=== PATIENT | female | born 1960 | race Caucasian/White ===

== ENCOUNTER 2017-03-14 20:32 | Emergency (ER) | payer OTHER ==
[~2017-03-14] VITALS: Ht 170.2 cm; Wt 90.9 kg
[~2017-03-14 20:32] MED LIST: ACETAMINOPHEN W1 TA6 PO; ASPIR-LOW81 MG PO; ASPIRIN 32325 MG/TAB PO; ASPIRIN E.C. 8181 MG PO; CELEBREX50 MG PO; CENTRUM SILVER1 TA1 PO; FISH OIL CONC1000 MG PO; FLONASE NASAL S16 GM NS; FORTAMET1000 MG PO; IBUPROFEN 200200 MG PO; IMITREX100 MG PO; LORATADINE10 MG PO; MACROBID 1100 MG/CAP PO; MVI; NEXIUM 40MG40 MG PO; PRILOSEC10 MG PO; SYNTHROID0.112 MG/T PO; VALIUM 5MG T5 MG/TAB PO; VITAMIN C BUFF500 MG PO; VITAMIN C500 MG PO; VYTORIN 10 MG-41 TAB PO; ZOCOR; ZOCOR5 MG PO
[2017-03-14 20:34] VITALS: TEMP 99.7
[2017-03-14] MEDS ORDERED: JANUMXR500-50 (20:41)
[2017-03-14 21:23] LABS: CALCIUM 8.8 mg/dL (8.4-10.2); CREATININE, serum 0.81 mg/dL (0.52-1.25); POTASSIUM 3.7 mmol/L (3.4-5.0)
[2017-03-14 22:32] VITALS: BP 123/73; PULSE 98
[2017-03-14] MEDS ORDERED: ZOFRAN8 MG PO (22:49)
== END 2017-03-14 22:59 | disposition home or self-care (01) ==
LOC: COL.ER 20:32
PROVIDERS: Emergency Medicine
DX: R11.2 Nausea with vomiting, unspecified (principal); R19.7 Diarrhea, unspecified; E11.9 Type 2 diabetes mellitus without complications; F41.9 Anxiety disorder, unspecified; F32.9 Major depressive disorder, single episode, unspecified; Z79.84 Long term (current) use of oral hypoglycemic drugs
CPT/HCPCS: J1885; J2405; J7030

== ENCOUNTER → 2017-05-25 | Outpatient (CLI) | payer OTHER ==
[~2017-05-25] MED LIST changes: +B-12 100 MCG PO; +FLONASEALLERGY NS; +JANUMXR500-50; +MAXALT10 MG; +PLAQUENIL 200M200 MG PO; +SYNTHROID0.125 MG/T PO; +ZOFRAN8 MG PO; +ZYRTEC 10MG10 MG PO
== END ==
LOC: MHCPAIN 08:19
DX: G89.29 Other chronic pain (principal); M54.12 Radiculopathy, cervical region; M47.812 Spondylosis without myelopathy or radiculopathy, cervical region; R51 Headache
CPT/HCPCS: G0463

== ENCOUNTER 2017-06-02 08:07 | Emergency (ER) | payer OTHER ==
[~2017-06-02] VITALS: Ht 170.2 cm; Wt 90.9 kg
[~2017-06-02 08:07] MED LIST changes: -B-12 100 MCG PO; -FLONASEALLERGY NS; -MAXALT10 MG; -PLAQUENIL 200M200 MG PO; -SYNTHROID0.125 MG/T PO; -ZYRTEC 10MG10 MG PO
[2017-06-02 08:10] VITALS: TEMP 97.7
[2017-06-02] MEDS ORDERED: ASPIRIN E.C. 8181 MG PO (08:30)
[2017-06-02] MEDS ORDERED: MAXALT10 MG (08:54)
[2017-06-02] MEDS ORDERED: SYNTHROID0.125 MG/T PO (08:54)
[2017-06-02] MEDS ORDERED: B-12 100 MCG PO (08:55)
[2017-06-02] MEDS ORDERED: FLONASEALLERGY NS (08:55)
[2017-06-02 09:01] LABS: BASO % 0.9 % (0.0-2.0); EOS # 0.2 (0.0-0.7); EOS % 3.5 % (0-4.0); GRAN # 2.5 (1.4-6.5); GRAN % 54.3 % (42.2-75.2); HEMATOCRIT 37.4 % (37.0-47.0); HEMOGLOBIN 12.5 g/dl (12.5-16.0); LYMPH # 1.5 (1.2-3.4); LYMPH % 32.7 % (20.0-51.0); MEAN CELL VOLUME 88 fl (80.0-100.0); MEAN CORPUSCULAR HEMOGLOBIN 30 pg (27.0-31.0); MEAN CORPUSCULAR HGB CONC 33 g/dl (33.0-37.0); MEAN PLATELET VOLUME 9.5 fl (7.4-10.4); MONO # 0.4 (0.1-0.6); MONO % 8.2 % (1.7-9.3); PLATELET COUNT 255 K/mm3 (130-400); RED BLOOD COUNT 4.24 M/mm3 (4.10-5.30); REDCELL DISTRIBUTION WIDTH-CV 13.1 % (11.5-14.5); WHITE BLOOD COUNT 4.5 K/mm3 (4.8-10.8)
[2017-06-02 09:12] LABS: ADJUSTED CALCIUM 9.4 mg/dL (8.4-10.2); ALANINE AMINOTRANSFERASE 52 U/L (9-52); ALBUMIN 4.5 gm/dL (3.5-5.0); ALKALINE PHOSPHATASE 81 U/L (50-136); ANION GAP 12 mmol/L (7-16); BILIRUBIN,TOTAL 0.5 mg/dL (0.0-1.0); BLOOD UREA NITROGEN 19 mg/dL (7-17); CALCIUM 9.8 mg/dL (8.4-10.2); CARBON DIOXIDE 23 mmol/L (22-30); CHLORIDE 104 mmol/L (98-107); CREATININE, serum 0.94 mg/dL (0.52-1.25); GLUCOSE 107 mg/dL (74-106); LIPASE 296 U/L (23-300); POTASSIUM 4.6 mmol/L (3.4-5.0); SODIUM 140 mmol/L (137-145); TOTAL PROTEIN 7.5 gm/dL (6.4-8.2)
[2017-06-02 09:24] LABS: TROPONIN-I < 0.012 ng/mL (0.000-0.034)
[2017-06-02] MEDS ORDERED: ZYRTEC 10MG10 MG PO (09:45)
[2017-06-02] MEDS ORDERED: PLAQUENIL 200M200 MG PO (09:47)
[2017-06-02 10:04] VITALS: BP 118/78; PULSE 80
== END 2017-06-02 10:05 | disposition home or self-care (01) ==
LOC: COL.ER 08:07
PROVIDERS: Physician Assistant
DX: M62.838 Other muscle spasm (principal); R07.9 Chest pain, unspecified; M54.2 Cervicalgia; E11.9 Type 2 diabetes mellitus without complications; E03.9 Hypothyroidism, unspecified; Z79.82 Long term (current) use of aspirin; Z79.84 Long term (current) use of oral hypoglycemic drugs

== ENCOUNTER → 2017-06-04 | Outpatient (CLI) | payer OTHER ==
[~2017-06-04] MED LIST changes: +B-12 100 MCG PO; +FLONASEALLERGY NS; +MAXALT10 MG; +PLAQUENIL 200M200 MG PO; +SYNTHROID0.125 MG/T PO; +ZYRTEC 10MG10 MG PO
== END ==
LOC: MHCPAIN 07:31
DX: M50.323 Other cervical disc degeneration at C6-C7 level (principal)
CPT/HCPCS: J1100; Q9967

== ENCOUNTER → 2018-04-14 | Outpatient (CLI) | payer OTHER | LOC: MHCPAIN 12:28 | DX: G89.29 Other chronic pain (principal); M50.90 Cervical disc disorder, unspecified, unspecified cervical region; M54.12 Radiculopathy, cervical region; M54.81 Occipital neuralgia; R51 Headache | CPT/HCPCS: G0463 ==

== ENCOUNTER → 2018-05-06 | Outpatient (CLI) | payer OTHER | LOC: MHCPAIN 08:16 | DX: M50.322 Other cervical disc degeneration at C5-C6 level (principal) | CPT/HCPCS: J1040; J1100; J2250; J3010; Q9967 ==

== ENCOUNTER → 2018-06-10 | Outpatient (CLI) | payer OTHER | LOC: MHCPAIN 07:55 | DX: G89.29 Other chronic pain (principal); M50.90 Cervical disc disorder, unspecified, unspecified cervical region; M54.12 Radiculopathy, cervical region | CPT/HCPCS: J1100; J2250; J3010; Q9967 ==

== ENCOUNTER → 2018-09-21 | Outpatient (CLI) | payer OTHER | LOC: MHCPAIN 13:04 | DX: G89.29 Other chronic pain (principal); M50.90 Cervical disc disorder, unspecified, unspecified cervical region; M54.12 Radiculopathy, cervical region | CPT/HCPCS: G0463 ==

== ENCOUNTER → 2018-09-23 | Outpatient (CLI) | payer OTHER | LOC: MHCPAIN 10:58 | DX: M54.12 Radiculopathy, cervical region (principal); M50.90 Cervical disc disorder, unspecified, unspecified cervical region | CPT/HCPCS: J1100; J2250; J3010; Q9967 ==

== ENCOUNTER → 2018-10-26 | Outpatient (CLI) | payer OTHER | LOC: COL.RAD 06:59 | DX: M96.1 Postlaminectomy syndrome, not elsewhere classified (principal) | CPT/HCPCS: A9585 ==

== ENCOUNTER 2019-01-24 15:42 | Emergency (ER) | payer OTHER ==
[~2019-01-24] VITALS: Ht 170.2 cm; Wt 90.9 kg
[2019-01-24 15:50] VITALS: TEMP 97.9
[2019-01-24 16:24] LABS: BASO # 0.1 (0.0-0.2); BASO % 0.8 % (0.0-2.0); EOS # 0.2 (0.0-0.7); GRAN # 3.1 (1.4-6.5); GRAN % 51.7 % (42.2-75.2); HEMATOCRIT 37.2 % (37.0-47.0); HEMOGLOBIN 12.6 g/dl (12.5-16.0); LYMPH % 33.7 % (20.0-51.0); MEAN CELL VOLUME 93 fl (80.0-100.0); MEAN CORPUSCULAR HEMOGLOBIN 31 pg (27.0-31.0); MEAN CORPUSCULAR HGB CONC 34 g/dl (33.0-37.0); MEAN PLATELET VOLUME 9.7 fl (7.4-10.4); MONO # 0.6 (0.1-0.6); MONO % 10.5 % (1.7-9.3); PLATELET COUNT 216 K/mm3 (130-400); RED BLOOD COUNT 4.01 M/mm3 (4.10-5.30); REDCELL DISTRIBUTION WIDTH-CV 12.6 % (11.5-14.5)
[2019-01-24 16:32] LABS: ALANINE AMINOTRANSFERASE 37 U/L (9-52); ALBUMIN 4.5 gm/dL (3.5-5.0); ALKALINE PHOSPHATASE 68 U/L (50-136); ANION GAP 10 mmol/L (7-16); AST,SGOT 31 U/L (15-37); BILIRUBIN,TOTAL 0.3 mg/dL (0.0-1.0); BLOOD UREA NITROGEN 18 mg/dL (7-17); CALCIUM 9.6 mg/dL (8.4-10.2); CARBON DIOXIDE 23 mmol/L (22-30); CHLORIDE 105 mmol/L (98-107); CREATININE, serum 1.09 mg/dL (0.52-1.25); GLUCOSE 119 mg/dL (74-106); POTASSIUM 4.8 mmol/L (3.4-5.0); SODIUM 139 mmol/L (137-145); TOTAL PROTEIN 7.2 gm/dL (6.4-8.2)
[2019-01-24 16:45] LABS: TROPONIN-I < 0.012 ng/mL (0.000-0.035)
[2019-01-24 20:26] VITALS: BP 110/68; PULSE 78
== END 2019-01-24 20:26 | disposition home or self-care (01) ==
LOC: COL.ER 15:42
PROVIDERS: Emergency Medicine
DX: R07.89 Other chest pain (principal); E03.9 Hypothyroidism, unspecified; E11.9 Type 2 diabetes mellitus without complications; K21.9 Gastro-esophageal reflux disease without esophagitis; G43.909 Migraine, unspecified, not intractable, without status migrainosus; Z79.82 Long term (current) use of aspirin; Z79.51 Long term (current) use of inhaled steroids

== ENCOUNTER 2019-11-13 03:09 | Emergency (ER) | payer OTHER ==
[~2019-11-13] VITALS: Ht 170.2 cm; Wt 88.6 kg
[2019-11-13 03:12] VITALS: TEMP 97.2
[2019-11-13] MEDS ORDERED: CELEBREX 200MG200 MG PO (03:24)
[2019-11-13] MEDS ORDERED: NATURAL MAGNES200 MG PO (03:25)
[2019-11-13 05:01] LABS: BASO % 0.5 % (0.0-2.0); EOS # 0.2 (0.0-0.7); GRAN # 2.1 (1.4-6.5); GRAN % 55.3 % (42.2-75.2); HEMOGLOBIN 12.4 g/dl (12.5-16.0); LYMPH % 26.2 % (20.0-51.0); MEAN CELL VOLUME 91 fl (80.0-100.0); MEAN CORPUSCULAR HEMOGLOBIN 31 pg (27.0-31.0); MEAN CORPUSCULAR HGB CONC 34 g/dl (33.0-37.0); MEAN PLATELET VOLUME 9.7 fl (7.4-10.4); MONO # 0.5 (0.1-0.6); MONO % 12.7 % (1.7-9.3); PLATELET COUNT 194 K/mm3 (130-400); RED BLOOD COUNT 3.97 M/mm3 (4.10-5.30); REDCELL DISTRIBUTION WIDTH-CV 12.7 % (11.5-14.5)
[2019-11-13 05:20] LABS: C-REACTIVE PROTEIN 1.1 mg/dL (0.0-0.9); TROPONIN-I < 0.012 ng/mL (0.000-0.035)
[2019-11-13 05:29] LABS: INR 0.9 (0.8-3.0)
[2019-11-13 06:47] LABS: ALBUMIN 4.1 gm/dL (3.5-5.0); BILIRUBIN,TOTAL 0.1 mg/dL (0.0-1.0); CREATININE, serum 0.63 (0.52-1.25); POTASSIUM 4.4 mmol/L (3.4-5.0); TOTAL PROTEIN 6.9 gm/dL (6.4-8.2)
[2019-11-13 08:25] VITALS: BP 125/80
[2019-11-13 09:19] VITALS: PULSE 97
== END 2019-11-13 09:25 | disposition home or self-care (01) ==
LOC: COL.ER 03:09
PROVIDERS: Emergency Medicine
DX: G43.909 Migraine, unspecified, not intractable, without status migrainosus (principal); M54.12 Radiculopathy, cervical region; E78.5 Hyperlipidemia, unspecified; E11.9 Type 2 diabetes mellitus without complications; Z98.890 Other specified postprocedural states; Z79.82 Long term (current) use of aspirin; Z79.84 Long term (current) use of oral hypoglycemic drugs; Z79.51 Long term (current) use of inhaled steroids
CPT/HCPCS: J7030; Q9967

== ENCOUNTER → 2019-11-30 | Outpatient (CLI) | payer OTHER ==
[~2019-11-30] MED LIST changes: +CELEBREX 200MG200 MG PO; +NATURAL MAGNES200 MG PO
== END ==
LOC: COL.RAD 12:21
DX: M50.20 Other cervical disc displacement, unspecified cervical region (principal); Z96.60 Presence of unspecified orthopedic joint implant; Z98.1 Arthrodesis status
CPT/HCPCS: A9585

== ENCOUNTER 2020-09-14 21:35 | Emergency (ER) | payer OTHER ==
[~2020-09-14] VITALS: Ht 170.2 cm; Wt 95.5 kg
[2020-09-14 21:42] VITALS: TEMP 97.6
[2020-09-14 22:14] LABS: BASO # 0.1 (0.0-0.2); BASO % 0.8 % (0.0-2.0); EOS # 0.2 (0.0-0.7); GRAN # 3.2 (1.4-6.5); GRAN % 50.1 % (42.2-75.2); HEMOGLOBIN 12.3 g/dl (12.5-16.0); LYMPH # 2.4 (1.2-3.4); MEAN CELL VOLUME 91 fl (80.0-100.0); MEAN CORPUSCULAR HEMOGLOBIN 31 pg (27.0-31.0); MEAN CORPUSCULAR HGB CONC 34 g/dl (33.0-37.0); MEAN PLATELET VOLUME 9.6 fl (7.4-10.4); MONO # 0.5 (0.1-0.6); MONO % 8.5 % (1.7-9.3); PLATELET COUNT 272 K/mm3 (130-400); RED BLOOD COUNT 3.98 M/mm3 (4.10-5.30); REDCELL DISTRIBUTION WIDTH-CV 11.6 % (11.5-14.5)
[2020-09-14 22:15] LABS: ALANINE AMINOTRANSFERASE 45 U/L (4-34); ALBUMIN 4.7 gm/dL (3.5-5.0); ALKALINE PHOSPHATASE 92 U/L (50-136); ANION GAP 9 mmol/L (7-16); AST,SGOT 31 U/L (15-37); BILIRUBIN,TOTAL 0.3 mg/dL (0.0-1.0); BLOOD UREA NITROGEN 24 mg/dL (7-17); CALCIUM 9.6 mg/dL (8.4-10.2); CARBON DIOXIDE 26 mmol/L (22-30); CHLORIDE 101 mmol/L (98-107); CREATININE, serum 1.04 (0.52-1.25); GLUCOSE 182 mg/dL (74-106); HEMATOCRIT 36.1 % (37.0-47.0); LIPASE 185 U/L (23-300); POTASSIUM 4.5 mmol/L (3.4-5.0); SODIUM 136 mmol/L (137-145); TOTAL PROTEIN 7.4 gm/dL (6.4-8.2)
[2020-09-14 22:26] LABS: TROPONIN-I < 0.012 ng/mL (0.000-0.035)
[2020-09-15 03:10] VITALS: BP 122/72; PULSE 75
== END 2020-09-15 03:10 | disposition home or self-care (01) ==
LOC: COL.ER 21:35
PROVIDERS: Emergency Medicine
DX: R07.9 Chest pain, unspecified (principal); E11.9 Type 2 diabetes mellitus without complications; Z79.82 Long term (current) use of aspirin; Z79.84 Long term (current) use of oral hypoglycemic drugs
CPT/HCPCS: J7030

== ENCOUNTER 2021-06-24 08:00 | Emergency (ER) | payer OTHER ==
[~2021-06-24] VITALS: Ht 170.2 cm; Wt 90.9 kg
[2021-06-24 08:11] VITALS: TEMP 98.4
[2021-06-24 09:55] LABS: BASO # 0.1 (0.0-0.2); BASO % 0.9 % (0.0-2.0); EOS # 0.1 (0.0-0.7); GRAN # 3.4 (1.4-6.5); GRAN % 58.1 % (42.2-75.2); HEMATOCRIT 38.2 % (37.0-47.0); HEMOGLOBIN 12.8 g/dl (12.5-16.0); LYMPH # 1.8 (1.2-3.4); LYMPH % 29.8 % (20.0-51.0); MEAN CELL VOLUME 91 fl (80.0-100.0); MEAN CORPUSCULAR HEMOGLOBIN 31 pg (27.0-31.0); MEAN CORPUSCULAR HGB CONC 34 g/dl (33.0-37.0); MEAN PLATELET VOLUME 9.7 fl (7.4-10.4); MONO # 0.5 (0.1-0.6); MONO % 8.9 % (1.7-9.3); PLATELET COUNT 219 K/mm3 (130-400); RED BLOOD COUNT 4.18 M/mm3 (4.10-5.30); REDCELL DISTRIBUTION WIDTH-CV 12.6 % (11.5-14.5)
[2021-06-24 10:10] LABS: ALBUMIN 4.8 gm/dL (3.5-5.0); BILIRUBIN,TOTAL 0.4 mg/dL (0.0-1.0); CALCIUM 9.9 mg/dL (8.4-10.2); CREATININE, serum 0.93 (0.52-1.25); MAGNESIUM 1.6 mg/dL (1.6-2.3); PHOSPHOROUS 4.7 mg/dL (2.5-4.5); POTASSIUM 4.4 mmol/L (3.4-5.0); TOTAL PROTEIN 7.5 gm/dL (6.4-8.2)
[2021-06-24 11:30] VITALS: BP 129/67; PULSE 68
== END 2021-06-24 11:38 | disposition home or self-care (01) ==
LOC: COL.ER 08:00
PROVIDERS: Student in an Organized Health Care Education/Training Program
DX: R20.0 Anesthesia of skin (principal); E11.9 Type 2 diabetes mellitus without complications; E78.5 Hyperlipidemia, unspecified; G43.909 Migraine, unspecified, not intractable, without status migrainosus; Z79.84 Long term (current) use of oral hypoglycemic drugs; Z79.899 Other long term (current) drug therapy
CPT/HCPCS: J7030

== ENCOUNTER 2021-07-19 21:07 | Emergency (ER) | payer OTHER ==
[~2021-07-19] VITALS: Ht 170.2 cm; Wt 90.9 kg
[2021-07-19 21:33] VITALS: TEMP 97.8
[2021-07-19 22:29] VITALS: BP 122/78; PULSE 91
== END 2021-07-19 22:31 | disposition home or self-care (01) ==
LOC: COL.ER 21:07
DX: M79.604 Pain in right leg (principal); E11.9 Type 2 diabetes mellitus without complications; E78.5 Hyperlipidemia, unspecified; G43.909 Migraine, unspecified, not intractable, without status migrainosus; Z79.84 Long term (current) use of oral hypoglycemic drugs; Z79.82 Long term (current) use of aspirin
CPT/HCPCS: J1650

== ENCOUNTER 2021-07-20 04:02 | Emergency (ER) | payer OTHER ==
[~2021-07-20] VITALS: Ht 170.2 cm; Wt 90.9 kg
[2021-07-20 04:08] VITALS: TEMP 97.7
[2021-07-20 04:30] LABS: BASO # 0.1 (0.0-0.2); BASO % 0.7 % (0.0-2.0); EOS # 0.2 (0.0-0.7); EOS % 2.4 % (0-4.0); GRAN # 3.4 (1.4-6.5); GRAN % 49.1 % (42.2-75.2); HEMATOCRIT 37.5 % (37.0-47.0); HEMOGLOBIN 12.9 g/dl (12.5-16.0); LYMPH # 2.7 (1.2-3.4); LYMPH % 39.1 % (20.0-51.0); MEAN CELL VOLUME 88 fl (80.0-100.0); MEAN CORPUSCULAR HEMOGLOBIN 30 pg (27.0-31.0); MEAN CORPUSCULAR HGB CONC 34 g/dl (33.0-37.0); MEAN PLATELET VOLUME 10.2 fl (7.4-10.4); MONO # 0.6 (0.1-0.6); MONO % 8.4 % (1.7-9.3); PLATELET COUNT 220 K/mm3 (130-400); RED BLOOD COUNT 4.25 M/mm3 (4.10-5.30); REDCELL DISTRIBUTION WIDTH-CV 12.4 % (11.5-14.5)
[2021-07-20 04:41] LABS: ALANINE AMINOTRANSFERASE 43 U/L (4-34); ALBUMIN 4.6 gm/dL (3.5-5.0); ALKALINE PHOSPHATASE 67 U/L (50-136); ANION GAP 8 mmol/L (7-16); AST,SGOT 43 U/L (15-37); BILIRUBIN,TOTAL 0.7 mg/dL (0.0-1.0); BLOOD UREA NITROGEN 15 mg/dL (7-17); CALCIUM 9.6 mg/dL (8.4-10.2); CARBON DIOXIDE 24 mmol/L (22-30); CHLORIDE 105 mmol/L (98-107); CREATININE, serum 0.81 (0.52-1.25); GLUCOSE 137 mg/dL (74-106); SODIUM 138 mmol/L (137-145); TOTAL PROTEIN 7.4 gm/dL (6.4-8.2)
[2021-07-20 04:55] LABS: TROPONIN-I < 0.012 ng/mL (0.000-0.035)
[2021-07-20 06:00] LABS: POTASSIUM 4.5 mmol/L (3.4-5.0)
[2021-07-20 10:29] VITALS: BP 129/93; PULSE 89
== END 2021-07-20 10:34 | disposition home or self-care (01) ==
LOC: COL.ER 04:02
PROVIDERS: Emergency Medicine
DX: R07.89 Other chest pain (principal); R00.2 Palpitations; E11.9 Type 2 diabetes mellitus without complications; E78.5 Hyperlipidemia, unspecified; G43.909 Migraine, unspecified, not intractable, without status migrainosus; Z79.84 Long term (current) use of oral hypoglycemic drugs; Z79.899 Other long term (current) drug therapy

== ENCOUNTER 2021-11-24 20:21 | Emergency (ER) | payer OTHER ==
[~2021-11-24] VITALS: Ht 170.2 cm; Wt 90.9 kg
[2021-11-24 21:39] LABS: BASO # 0.1 K/mm3 (0.0-0.2); BASO % 1.1 % (0.0-2.0); EOS # 0.2 K/mm3 (0.0-0.7); EOS % 2.7 % (0.0-4.0); GRAN # 2.7 K/mm3 (1.4-6.5); GRAN % 48.6 % (42.2-75.2); HEMOGLOBIN 11.8 g/dl (12.5-16.0); LYMPH # 2.1 K/mm3 (1.2-3.4); LYMPH % 38.8 % (20.0-51.0); MEAN CELL VOLUME 90 fl (80.0-100.0); MEAN CORPUSCULAR HEMOGLOBIN 31 pg (27-31); MEAN CORPUSCULAR HGB CONC 34 g/dl (33.0-37.0); MEAN PLATELET VOLUME 9.9 fl (7.4-10.4); MONO # 0.5 K/mm3 (0.1-0.6); MONO % 8.3 % (1.7-9.3); PLATELET COUNT 170 K/mm3 (130-400); RED BLOOD COUNT 3.82 M/mm3 (4.10-5.30); REDCELL DISTRIBUTION WIDTH-CV 12.3 % (11.5-14.5)
[2021-11-24 21:44] LABS: HEMATOCRIT 34.5 % (37.0-47.0)
[2021-11-24 21:49] LABS: INR 0.9 (0.8-3.0); PARTIAL THROMBOPLASTIN TIME 23.7 SECONDS (26.0-37.0); PROTHROMBIN TIME 10.3 SECONDS (9.7-12.8)
[2021-11-24 22:00] LABS: ALANINE AMINOTRANSFERASE 37 U/L (0-55); ALKALINE PHOSPHATASE 87 U/L (40-150); ANION GAP 14 mmol/L (7-16); AST,SGOT 27 U/L (5-34); BILIRUBIN,TOTAL 0.3 mg/dL (0.2-1.2); BLOOD UREA NITROGEN 12 mg/dL (10-20); CALCIUM 8.7 mg/dL (8.4-10.2); CARBON DIOXIDE 17 mmol/L (23-31); CHLORIDE 107 mmol/L (98-107); CREATININE, serum 0.94 mg/dL (0.57-1.11); GLUCOSE 244 mg/dL (70-99); POTASSIUM 4.1 mmol/L (3.5-4.5); SODIUM 138 mmol/L (136-145); TOTAL PROTEIN 6.6 gm/dL (6.2-8.1)
[2021-11-24 22:06] LABS: TROPONIN-I < 0.010 ng/mL (0.00-0.033)
[2021-11-24 22:42] VITALS: BP 135/87; PULSE 74; TEMP 98.1
== END 2021-11-24 22:48 | disposition home or self-care (01) ==
LOC: COL.ER 20:21
PROVIDERS: Emergency Medicine
DX: R20.0 Anesthesia of skin (principal); R20.2 Paresthesia of skin; E11.65 Type 2 diabetes mellitus with hyperglycemia; E78.5 Hyperlipidemia, unspecified; G43.909 Migraine, unspecified, not intractable, without status migrainosus; Z79.84 Long term (current) use of oral hypoglycemic drugs; Z79.899 Other long term (current) drug therapy

== ENCOUNTER 2022-03-07 18:07 | Emergency (ER) | payer OTHER ==
[~2022-03-07] VITALS: Ht 167.6 cm; Wt 86.4 kg
[2022-03-07 18:12] VITALS: TEMP 97.9
[2022-03-07 18:47] LABS: BASO # 0.1 K/mm3 (0.0-0.2); BASO % 0.9 % (0.0-2.0); EOS # 0.1 K/mm3 (0.0-0.7); EOS % 2.4 % (0.0-4.0); GRAN # 2.6 K/mm3 (1.4-6.5); GRAN % 48.2 % (42.2-75.2); HEMOGLOBIN 11.7 g/dl (12.5-16.0); LYMPH # 2.1 K/mm3 (1.2-3.4); LYMPH % 38.9 % (20.0-51.0); MEAN CELL VOLUME 92 fl (80.0-100.0); MEAN CORPUSCULAR HEMOGLOBIN 31 pg (27-31); MEAN CORPUSCULAR HGB CONC 33 g/dl (33.0-37.0); MEAN PLATELET VOLUME 10.3 fl (7.4-10.4); MONO # 0.5 K/mm3 (0.1-0.6); MONO % 9.4 % (1.7-9.3); PLATELET COUNT 220 K/mm3 (130-400); REDCELL DISTRIBUTION WIDTH-CV 12.3 % (11.5-14.5)
[2022-03-07 19:05] LABS: ALBUMIN 4.4 gm/dL (3.4-4.8); BILIRUBIN,TOTAL 0.3 mg/dL (0.2-1.2); CALCIUM 9.3 mg/dL (8.4-10.2); CREATININE, serum 1.09 mg/dL (0.57-1.11); TOTAL PROTEIN 6.5 gm/dL (6.2-8.1)
[2022-03-07 19:25] LABS: TSH w REFLEX 0.496 uIU/mL (0.350-4.940)
[2022-03-07 21:33] VITALS: BP 118/65; PULSE 76
== END 2022-03-07 21:35 | disposition home or self-care (01) ==
LOC: COL.ER 18:07
PROVIDERS: Emergency Medicine
DX: Z51.89 Encounter for other specified aftercare (principal)
CPT/HCPCS: Q9967

== ENCOUNTER 2022-04-01 07:23 | Emergency (ER) | payer OTHER ==
[~2022-04-01] VITALS: Ht 170.2 cm; Wt 86.4 kg
[2022-04-01 07:55] LABS: BASO % 0.4 % (0.0-2.0); EOS # 0.1 K/mm3 (0.0-0.7); GRAN % 71.7 % (42.2-75.2); HEMOGLOBIN 11.9 g/dl (12.5-16.0); LYMPH # 1.3 K/mm3 (1.2-3.4); MEAN CELL VOLUME 91 fl (80.0-100.0); MEAN CORPUSCULAR HEMOGLOBIN 31 pg (27-31); MEAN CORPUSCULAR HGB CONC 34 g/dl (33.0-37.0); MEAN PLATELET VOLUME 9.9 fl (7.4-10.4); MONO % 11.5 % (1.7-9.3); PLATELET COUNT 197 K/mm3 (130-400); RED BLOOD COUNT 3.88 M/mm3 (4.10-5.30)
[2022-04-01 08:03] LABS: HEMATOCRIT 35.2 % (37.0-47.0)
[2022-04-01 08:21] LABS: ALBUMIN 3.7 gm/dL (3.4-4.8); BILIRUBIN,TOTAL 0.5 mg/dL (0.2-1.2); C-REACTIVE PROTEIN 6.17 mg/dL (0.00-0.50); CALCIUM 8.9 mg/dL (8.4-10.2); CREATININE, serum 0.89 mg/dL (0.57-1.11); POTASSIUM 4.3 mmol/L (3.5-4.5); TOTAL PROTEIN 6.7 gm/dL (6.2-8.1)
[2022-04-01] MEDS ORDERED: OMNICEF 300MG300 MG PO (09:38)
[2022-04-01 09:52] VITALS: BP 121/76; PULSE 82; TEMP 98
[2022-04-02] MEDS ORDERED: ZOCOR 40MG40 MG PO (16:03)
[2022-04-02] MEDS ORDERED: SYNTHROID0.1 MG/TAB PO (16:08)
[2022-04-02] MEDS ORDERED: NATURAL IRON65 MG PO (16:09)
[2022-04-02] MEDS ORDERED: VITAMIN D31000 I1 PO (16:27)
[2022-04-02] MEDS ORDERED: PHARMASSURE ZIN50 MG PO (16:28)
== END 2022-04-01 10:04 | disposition home or self-care (01) ==
LOC: COL.ER 07:23
PROVIDERS: Family Medicine
DX: J18.9 Pneumonia, unspecified organism (principal); Z88.1 Allergy status to other antibiotic agents; Z20.822 Contact with and (suspected) exposure to COVID-19; Z28.311 Partially vaccinated for COVID-19
CPT/HCPCS: J0696; J1956; J7120; Q9967

== ENCOUNTER 2022-04-02 13:56 | Observation (INO) | payer OTHER ==
[~2022-04-02] VITALS: Ht 170.2 cm; Wt 86.4 kg
[~2022-04-02 13:56] MED LIST changes: +OMNICEF 300MG300 MG PO
[2022-04-02 15:08] LABS: BASO % 0.5 % (0.0-2.0); EOS # 0.1 K/mm3 (0.0-0.7); EOS % 0.7 % (0.0-4.0); GRAN # 6.1 K/mm3 (1.4-6.5); GRAN % 79.1 % (42.2-75.2); HEMOGLOBIN 11.7 g/dl (12.5-16.0); LYMPH # 0.8 K/mm3 (1.2-3.4); LYMPH % 10.7 % (20.0-51.0); MEAN CELL VOLUME 92 fl (80.0-100.0); MEAN CORPUSCULAR HEMOGLOBIN 31 pg (27-31); MEAN CORPUSCULAR HGB CONC 33 g/dl (33.0-37.0); MEAN PLATELET VOLUME 9.9 fl (7.4-10.4); MONO # 0.7 K/mm3 (0.1-0.6); MONO % 8.6 % (1.7-9.3); PLATELET COUNT 217 K/mm3 (130-400); RED BLOOD COUNT 3.84 M/mm3 (4.10-5.30); REDCELL DISTRIBUTION WIDTH-CV 11.9 % (11.5-14.5)
[2022-04-02 15:15] LABS: HEMATOCRIT 35.3 % (37.0-47.0)
[2022-04-02 15:25] LABS: ALBUMIN 3.8 gm/dL (3.4-4.8); BILIRUBIN,TOTAL 0.5 mg/dL (0.2-1.2); CALCIUM 9.3 mg/dL (8.4-10.2); CREATININE, serum 1.09 mg/dL (0.57-1.11); POTASSIUM 4.2 mmol/L (3.5-4.5); TOTAL PROTEIN 7.2 gm/dL (6.2-8.1)
[2022-04-02] MEDS ORDERED: ZOCOR 40MG40 MG PO (16:03)
[2022-04-02 16:04] VITALS: BP 128/69; PULSE 90; TEMP 99.8
[2022-04-02] MEDS ORDERED: SYNTHROID0.1 MG/TAB PO (16:08)
[2022-04-02] MEDS ORDERED: NATURAL IRON65 MG PO (16:09)
[2022-04-02] MEDS ORDERED: VITAMIN D31000 I1 PO (16:27)
[2022-04-02] MEDS ORDERED: PHARMASSURE ZIN50 MG PO (16:28)
--- NOTE | 2022-04-02 18:16 | NUR ---
PT LAYING ON RIGHT SIDE IN BED WATCHING TV. PT STATES THAT SHE IS DONE WITH HER DINNER TRAY. PT STATES THAT SHE SPILLED SOME JUICE ON HER GOWN AND IS IN NEED OF A NEW DRY ONE. GOWN WAS GIVEN TO PT. PT STATES NO SOB OR PAIN AT THIS TIME. "I AM GOING TO FINISH THIS MOVIE AND THEN I AM GOING TO TURN THE TV OFF AND TRY TO GET SOME REST." PT STATES NO OTHER NEEDS OR CONCERNS AT THIS TIME. CALL LIGHT IS WITHIN REACH.
[2022-04-02 19:09] VITALS: BP 130/50; PULSE 109; TEMP 100
--- NOTE | 2022-04-02 23:39 | NUR ---
ALERT AND OX4. DNIES SOA UNLESS AMBULATING, NO CHEST PAIN OR DIZZY. PM MEDS GIVEN, ANTIBOTICS-STERIODS. 4L O2. POC DISCUSSED. CALL LIGHT WI REACH. NEEDS MET.
[2022-04-02 23:54] VITALS: BP 119/57; PULSE 86; TEMP 98.4
[2022-04-03 03:41] VITALS: BP 109/43; PULSE 79; TEMP 99.4
--- NOTE | 2022-04-03 05:43 | NUR ---
RESTED THROUGH THE NIGHT WITHOUT INCIDENT. AM ANTIBOTICS, WARM BLANET AND FRESH WATER. NEEDS MET. CALL LIGHT WI REACH.
[2022-04-03 06:38] LABS: BASO % 0.3 % (0.0-2.0); EOS % 0.4 % (0.0-4.0); GRAN # 5.6 K/mm3 (1.4-6.5); GRAN % 75.1 % (42.2-75.2); HEMOGLOBIN 11.6 g/dl (12.5-16.0); LYMPH # 0.9 K/mm3 (1.2-3.4); LYMPH % 12.1 % (20.0-51.0); MEAN CELL VOLUME 91 fl (80.0-100.0); MEAN CORPUSCULAR HEMOGLOBIN 31 pg (27-31); MEAN CORPUSCULAR HGB CONC 34 g/dl (33.0-37.0); MEAN PLATELET VOLUME 10.1 fl (7.4-10.4); MONO # 0.9 K/mm3 (0.1-0.6); MONO % 11.6 % (1.7-9.3); PLATELET COUNT 207 K/mm3 (130-400); RED BLOOD COUNT 3.72 M/mm3 (4.10-5.30)
[2022-04-03 06:43] LABS: HEMATOCRIT 33.8 % (37.0-47.0)
[2022-04-03 06:55] LABS: CALCIUM 9.4 mg/dL (8.4-10.2); CREATININE, serum 0.97 mg/dL (0.57-1.11); POTASSIUM 3.9 mmol/L (3.5-4.5)
[2022-04-03 07:52] VITALS: BP 129/60; PULSE 105; TEMP 98.1
--- NOTE | 2022-04-03 08:45 | NUR ---
PT LAYING SUPINE IN BED ON ROOM AIR. PT STATES THAT SHE IS NOT HAVING ANY SOB OR PAIN AT THIS TIME. PT STATES THAT SHE WOULD LIKE TO HAVE SOME NEW WATER AND ICE. ITEMS WERE GOTTEN FOR PT. PT STATES THAT SHE DOES NOT WANT TO EAT BREAKFAST AT THIS TIME AND WILL CALL LATER WHEN SHE WANTS SOME. PT STATES NO OTHER NEEDS AT THIS TIME. CALL LIGHT IS WITHIN REACH.
--- NOTE | 2022-04-03 09:51 | NUR ---
Initial visit; Nurse with patient. Patient thanked Education And Outreach Coordinator for stopping and offering God's blessings.
[2022-04-03 11:40] VITALS: BP 123/59; PULSE 103; TEMP 98.4
--- NOTE | 2022-04-03 14:06 | NUR ---
SW met with the patient to discuss discharge plan. The patient lives alone in [place]. She states that her daughter, Tayler Cruz (ph#[phone]), also lives in [facility] and is an RN. She reports independence with ADLs and does not have any DME. The patient's PCP is Dr. Kerline Calderón and she receives her medications from [facility] ([place] and [facility]. The patient does not have a DPOA-HC, but she was interested in obtaining a form. ROULA provided. The patient states that she is not and that she has one child: Tayler. The patient plans on returning home upon discharge. PT has signed off of the patient, due to her walking independently in the halls. No additional needs at this time. *Discharge plan: home*
[2022-04-03 16:25] VITALS: BP 125/68; PULSE 97; TEMP 99.9
--- NOTE | 2022-04-03 18:35 | NUR ---
PT SITTING UP IN BED ON ROOM AIR. PT FINISHING DINNER. PT STATES THAT HER HEAD ACHE IS "A LITTLE BETTER." PT STATES NO CONCERNS OR NEEDS AT THIS TIME. NO SOB. PT HAS BEEN UP WALKING IN THE HALLWAYS MULTIPLE TIMES TODAY. CALL LIGHT IS WITHIN REACH.
[2022-04-03 19:22] VITALS: BP 115/58; PULSE 102; TEMP 98.5
--- NOTE | 2022-04-03 21:00 | NUR ---
PT RESTING IN BED. HAD BEEN UP AMB IN [place] WAITING FOR DAUGHTER TO COME UP TO BRING CLOTHES. DRUGLESS PHYSICIAN WENT TO ER TO RAILWAY SIGNAL ELECTRICIAN HER CLOTHES. DAUGHTER UPSET SHE COULDNT COME UP AFTER VISITING HOURS. CALL LIGHT IN REACH. REMINDED PT NOT TO LEAVE UNIT WHEN AMB. PT AGREED.
[2022-04-03 23:13] VITALS: BP 123/66; PULSE 90; TEMP 98.7
--- NOTE | 2022-04-04 01:31 | NUR ---
PT SLEEPING. NO DISTRESS.
[2022-04-04 03:37] VITALS: BP 105/45; PULSE 79; TEMP 98.6
--- NOTE | 2022-04-04 06:24 | NUR ---
PT HAS SLEPT WELL THIS SHIFT. NO NEEDS NOTED.
[2022-04-04 06:59] VITALS: BP 128/72; PULSE 93; TEMP 98.9
[2022-04-04] MEDS ORDERED: AMOXICILLIN 8751 TAB PO (09:47)
--- NOTE | 2022-04-04 09:49 | NUR ---
Scheduled medications given. Shift assessment preformed. PRN tylenol given for headache rated a 3/10. Patient currently on RA. VSS. Patient A&O. Patient denies any further pain, discomfort, SOA, or further needs at this time. Call light in reach.
--- NOTE | 2022-04-04 11:35 | NUR ---
Patient deemed fit for discharge. IV DC'd, catheter intact, no signs of phlebitis. Discharge education/instructions given. All questions answered. Patient denies any pain, discomfort, SOA, or further needs at this time. Patient ambulated from building escorted by [facility] Staff. Patient transporting self home.
== END 2022-04-04 11:35 | disposition home or self-care (01) ==
LOC: COL.ER 13:56 → MEDICAL 14:48
PROVIDERS: Family Medicine; Physician Assistant; ADMIT Student in an Organized Health Care Education/Training Program
DX: J96.01 Acute respiratory failure with hypoxia (principal); J18.1 Lobar pneumonia, unspecified organism; R07.89 Other chest pain; R79.89 Other specified abnormal findings of blood chemistry; D64.9 Anemia, unspecified; E11.9 Type 2 diabetes mellitus without complications; E03.9 Hypothyroidism, unspecified; E78.5 Hyperlipidemia, unspecified; G43.909 Migraine, unspecified, not intractable, without status migrainosus; K44.9 Diaphragmatic hernia without obstruction or gangrene; M32.9 Systemic lupus erythematosus, unspecified; F41.9 Anxiety disorder, unspecified; F32.A Depression, unspecified; Z79.84 Long term (current) use of oral hypoglycemic drugs; Z79.890 Hormone replacement therapy; Z20.822 Contact with and (suspected) exposure to COVID-19; Z79.899 Other long term (current) drug therapy
CPT/HCPCS: 99222-AI; 99232-AI; G0378; J1650; J1815; J2543

== ENCOUNTER 2023-11-03 07:28 | Emergency (ER) | payer OTHER ==
[~2023-11-03] VITALS: Ht 167.6 cm; Wt 87.3 kg
[~2023-11-03 07:28] MED LIST changes: +AMOXICILLIN 8751 TAB PO; +CIPRO 500MG TA500 MG PO; +FLAGYL500 MG PO; +NATURAL IRON65 MG PO; +PHARMASSURE ZIN50 MG PO; +SYNTHROID0.1 MG/TAB PO; +VITAMIN D31000 I1 PO; +ZOCOR 40MG40 MG PO
[2023-11-03 07:34] VITALS: TEMP 97.8
[2023-11-03 09:18] VITALS: BP 121/76; PULSE 74
== END 2023-11-03 09:18 | disposition home or self-care (01) ==
LOC: COL.ER 07:28
DX: M79.81 Nontraumatic hematoma of soft tissue (principal)

== ENCOUNTER → 2024-01-04 | Outpatient (CLI) | payer OTHER, MEDICARE ==
[~2024-01-04] MED LIST changes: +Iohexol 300 - 10 ML VIAL ONE; +Lidocaine PF 2% (20 MG/ML) 2 ML VIAL ONE
== END ==
LOC: MHCPAIN 15:21
DX: M54.12 Radiculopathy, cervical region (principal); M96.1 Postlaminectomy syndrome, not elsewhere classified
CPT/HCPCS: J1100; Q9967

== ENCOUNTER → 2024-02-02 | Outpatient (CLI) | payer OTHER, MEDICARE ==
[~2024-02-02] MED LIST changes: -Iohexol 300 - 10 ML VIAL ONE; -Lidocaine PF 2% (20 MG/ML) 2 ML VIAL ONE
== END ==
LOC: MHCPAIN 08:03
DX: M47.812 Spondylosis without myelopathy or radiculopathy, cervical region (principal); M54.12 Radiculopathy, cervical region; M96.1 Postlaminectomy syndrome, not elsewhere classified; Z79.84 Long term (current) use of oral hypoglycemic drugs; E11.9 Type 2 diabetes mellitus without complications
CPT/HCPCS: G0463

== ENCOUNTER → 2024-03-03 | Outpatient (CLI) | payer OTHER, MEDICARE ==
[~2024-03-03] MED LIST changes: +Atropine 1 MG/10 ML SYRINGE IV ONE; +DOXYCYCLINE 10100 MG PO; +Glycopyrrolate 0.2 MG/ML 1 ML VIAL ONE; +Iohexol 300 - 10 ML VIAL ONE; +Lidocaine PF 2% (20 MG/ML) 2 ML VIAL ONE; +ePHEDrine 50 MG/10 ML VIAL IV ONE
== END ==
LOC: MHCPAIN 07:26
DX: M54.12 Radiculopathy, cervical region (principal); Z98.1 Arthrodesis status
CPT/HCPCS: J0461; J1010; Q9967

== ENCOUNTER 2024-03-07 12:47 | Outpatient (RCR) | payer OTHER, MEDICARE ==
[~2024-03-07 12:47] MED LIST changes: -Atropine 1 MG/10 ML SYRINGE IV ONE; -Glycopyrrolate 0.2 MG/ML 1 ML VIAL ONE; -Iohexol 300 - 10 ML VIAL ONE; -Lidocaine PF 2% (20 MG/ML) 2 ML VIAL ONE; -ePHEDrine 50 MG/10 ML VIAL IV ONE
== END 2024-03-08 | disposition home or self-care (01) ==
LOC: WSPT
DX: M54.2 Cervicalgia (principal); L93.0 Discoid lupus erythematosus; M17.9 Osteoarthritis of knee, unspecified

== ENCOUNTER 2024-04-07 08:15 | Outpatient (RCR) | payer OTHER, MEDICARE | END 2024-04-08 | LOC: WSC → WSPT 08:15 | DX: M54.2 Cervicalgia (principal); M17.9 Osteoarthritis of knee, unspecified; L93.0 Discoid lupus erythematosus ==

== ENCOUNTER 2024-05-02 12:45 | Outpatient (RCR) | payer OTHER, MEDICARE | END 2024-05-08 | disposition home or self-care (01) | LOC: WSPT | DX: M54.2 Cervicalgia (principal); M17.9 Osteoarthritis of knee, unspecified; M54.50 Low back pain, unspecified; M25.551 Pain in right hip; M25.552 Pain in left hip ==

== ENCOUNTER → 2024-08-08 | Outpatient (CLI) | payer MEDICARE, OTHER | LOC: MHCPAIN 13:54 | DX: M25.78 Osteophyte, vertebrae (principal); M96.1 Postlaminectomy syndrome, not elsewhere classified; M48.02 Spinal stenosis, cervical region; M47.816 Spondylosis without myelopathy or radiculopathy, lumbar region; M48.061 Spinal stenosis, lumbar region without neurogenic claudication; E78.5 Hyperlipidemia, unspecified; E11.9 Type 2 diabetes mellitus without complications | CPT/HCPCS: G0463 ==

== ENCOUNTER 2024-10-06 13:33 | Emergency (ER) | payer MEDICARE, OTHER ==
[~2024-10-06] VITALS: Ht 167.6 cm; Wt 75.9 kg
[2024-10-06 13:35] VITALS: BP 129/82; TEMP 97.9
[2024-10-06 15:05] VITALS: PULSE 78
== END 2024-10-06 15:05 | disposition home or self-care (01) ==
LOC: COL.ER 13:33
DX: S42.255A Nondisplaced fracture of greater tuberosity of left humerus, initial encounter for closed fracture (principal); X58.XXXA Exposure to other specified factors, initial encounter